=== PATIENT | female | born 1950 | race Caucasian/White ===

== ENCOUNTER 2019-05-23 12:35 | Emergency (ER) | payer OTHER, MEDICARE ==
[2019-05-23] MEDS ORDERED: IBUPROFEN 200 MG TAB PO ONE (13:03)
[2019-05-23] MEDS ORDERED: IBUPROFEN 400 MG TAB ONE (13:03)
--- NOTE | 2019-05-23 14:18 | EDPHYS ---
Physician Documentation [facility] Name: Myia Flores Age: 69 yrs Sex: Female : 1950 Arrival Date: 05/23/2019 Time: 12:38 Bed 24 Private MD: ED Physician Mahin Putnam HPI: 05/23 12:59 This 69 yrs old Female presents to ER via Ambulatory with complaints of Hip la1 Pain. 12:59 The patient or guardian reports pain. that occurred outdoors, sustained from a fall, la1 There is no obvious deformity, The patient is able to self ambulate. The patient is able to bear their full body weight. The patient's discomfort radiates to the left knee. The complaints affect the left hip. Onset: The symptoms/episode began/occurred 3 day(s) ago. Modifying factors: The symptoms are alleviated by nothing, the symptoms are aggravated by nothing. Associated signs and symptoms: Loss of consciousness: the patient experienced no loss of consciousness. Severity of symptoms: At their worst the symptoms were mild. Pt was walking three dogs and they ran to fight another dog knocking her to the ground, pain in left hip area since fall. Historical: - Allergies: 12:44 PENICILLINS; ss - PMHx: 12:44 Narcolepsy; ss - PSHx: 12:44 None; ss - Immunization history:: Adult Immunizations up to date. - Social history:: Smoking status: Patient/guardian denies using tobacco. - Ebola Screening: : Patient denies exposure to infectious person Patient denies travel to an Ebola-affected area in the 21 days before illness onset. ROS: 13:00 Constitutional: Negative for fever, chills, and weight loss, Eyes: Negative for injury, la1 pain, redness, and discharge, ENT: Negative for injury, pain, and discharge, Neck: Negative for injury, pain, and swelling, Cardiovascular: Negative for chest pain, palpitations, and edema, Respiratory: Negative for shortness of breath, cough, wheezing, and pleuritic chest pain, Abdomen/GI: Negative for abdominal pain, nausea, vomiting, diarrhea, and constipation, Back: Negative for injury and pain, MS/Extremity: + for left hip pain Neuro: Negative for headache, weakness, numbness, tingling, and seizure. Exam: 13:01 Constitutional: This is a well developed, well nourished patient who is awake, alert, la1 and in no acute distress. Head/Face: Normocephalic, atraumatic. Eyes: Pupils equal round and reactive to light, extra-ocular motions intact.Periorbital areas with no swelling, redness, or edema. ENT: Mucous membranes moist. Neck: . No Meningismus. Chest/axilla: Normal chest wall appearance and motion. Nontender with no deformity. No lesions are appreciated. Cardiovascular: Regular rate and rhythm with a normal S1 and S2. No gallops, murmurs, or rubs. Normal PMI, no JVD. No pulse deficits. Respiratory: Lungs have equal breath sounds bilaterally, clear to auscultation No rales, rhonchi or wheezes noted. No increased work of breathing, no retractions or nasal flaring. MS/ Extremity: Pulses equal, no cyanosis. Neurovascular intact. Full, normal range of motion. Vital Signs: 12:44 BP 132 / 63; Pulse 72; Resp 16; Temp 98.1(TE); Pulse Ox 99% on R/A; Weight 63.5 kg; ss Height 5 ft. 1 in. (154.94 cm); Pain 5/10; 13:26 BP 120 / 61; Pulse 64; Resp 17 S; Pulse Ox 100% on R/A; ca1 12:44 Body Mass Index 26.45 (63.50 kg, 154.94 cm) ss MDM: 12:46 Patient medically screened. la1 14:15 Data reviewed: vital signs, nurses notes, radiologic studies, and as a result, I will la1 discharge patient. Data interpreted: Pulse oximetry: on room air is 100 %. Interpretation: normal. Test interpretation: by ED physician or midlevel provider: plain radiologic studies. Counseling: I had a detailed discussion with the patient and/or guardian regarding: radiology results, the need for outpatient follow up, a family practitioner, a orthopedic surgeon, to return to the emergency department if symptoms worsen or persist or if there are any questions or concerns that arise at home. Special discussion: Based on the history and exam findings, there is no indication for further emergent testing or inpatient evaluation. I discussed with the patient/guardian the need to see the orthopedic surgeon for further evaluation of the symptoms. 05/23 12:58 Order name: Hip Left 2 View XRAY la1 Administered Medications: 13:05 Drug: Motrin 600 mg Route: PO; em 14:30 Follow up: Response: No adverse reaction; Pain is unchanged, physician notified em 14:30 Drug: [place] (7.5 mg-325 mg) 1 tabs Route: PO; em 14:37 Follow up: Response: Medication administered at discharge. em Disposition: 05/23/19 14:16 Discharged to Home. Impression: Pain in left hip. - Condition is Stable. - Discharge Instructions: Joint Pain, Musculoskeletal Pain, Hip Pain. - Prescriptions for Tylenol- Codeine #3 300-30 mg Oral Tablet - take 2 tablets by ORAL route every 6 hours As needed; 20 tablet. - Medication Reconciliation Form, Thank You Letter, Prescription Opioid Use form. - Follow up: Private Physician; When: 2 - 3 days; Reason: Recheck today's complaints, Re-evaluation by your physician. - Problem is new. - Symptoms have improved. Addendum: 05/26/2019 06:40 Co-signature as Attending Physician, Mahin Putnam MD I agree with the assessment and k dr plan of care. Signatures: Dispatcher [employer] EDMahin Dodson MD MD [facility] Jerod Burroughs, MECHANICAL MAINTENANCE TECHNICIAN MECHANICAL MAINTENANCE TECHNICIAN em Jagruti Cgae RN RN ss Gabriel Franklin, POULTRY HUSBANDMAN-C POULTRY HUSBANDMAN-Cla1 Corrections: (The following items were deleted from the chart) 05/23 14:39 14:16 05/23/2019 14:16 Discharged to Home. Impression: Pain in left hip. Condition is em Stable. Forms are Medication Reconciliation Form, Thank You Letter, Antibiotic Education, Prescription Opioid Use. Follow up: Private Physician; When: 2 - 3 days; Reason: Recheck today's complaints, Re-evaluation by your physician. Problem is new. Symptoms have improved. la1
--- NOTE | 2019-05-23 14:18 | ER ---
Nurse's Notes [facility] Name: Miya Flores Age: 69 yrs Sex: Female : 1950 Arrival Date: 05/23/2019 Time: 12:38 Bed 24 Private MD: Diagnosis: Pain in left hip Presentation: 05/23 12:42 Presenting complaint: Patient states: L hip pain after falling 4 days ago while walking ss dogs. Transition of care: patient was not received from another setting of care. Onset of symptoms was May 19, 2019. Risk Assessment: Do you want to hurt yourself or someone else? Patient reports no desire to harm self or others. Initial Sepsis Screen: Does the patient meet any 2 criteria? No. Patient's initial sepsis screen is negative. Does the patient have a suspected source of infection? No. Patient's initial sepsis screen is negative. Care prior to arrival: None. 12:42 Method Of Arrival: Ambulatory ss 12:42 Acuity: JOSSELIN 4 ss Historical: - Allergies: 12:44 PENICILLINS; ss - PMHx: 12:44 Narcolepsy; ss - PSHx: 12:44 None; ss - Immunization history:: Adult Immunizations up to date. - Social history:: Smoking status: Patient/guardian denies using tobacco. - Ebola Screening: : Patient denies exposure to infectious person Patient denies travel to an Ebola-affected area in the 21 days before illness onset. Screenin:53 Abuse screen: Denies threats or abuse. Nutritional screening: No deficits noted. em Tuberculosis screening: No symptoms or risk factors identified. Fall Risk None identified. Assessment: 13:00 General: Appears in no apparent distress. comfortable, Behavior is calm, cooperative. em Pain: Complains of pain in coccyx Pain radiates to left leg Pain currently is 5 out of 10 on a pain scale. Neuro: Level of Consciousness is awake, alert, obeys commands, Oriented to person, place, time, situation, Appropriate for age. Cardiovascular: Capillary refill < 3 seconds Patient's skin is warm and dry. Respiratory: Airway is patent Respiratory effort is even, unlabored, Respiratory pattern is regular, symmetrical. Derm: Skin is intact, is healthy with good turgor, Skin is pink, warm \T\ dry. Musculoskeletal: Capillary refill < 3 seconds, Range of motion: intact in all extremities. 13:29 Reassessment: X ray at bedside. ca1 14:38 Reassessment: Patient appears in no apparent distress at this time. Patient and/or em family updated on plan of care and expected duration. Pain level reassessed. Patient is alert, oriented x 3, equal unlabored respirations, skin warm/dry/pink. Vital Signs: 12:44 BP 132 / 63; Pulse 72; Resp 16; Temp 98.1(TE); Pulse Ox 99% on R/A; Weight 63.5 kg; ss Height 5 ft. 1 in. (154.94 cm); Pain 5/10; 13:26 BP 120 / 61; Pulse 64; Resp 17 S; Pulse Ox 100% on R/A; ca1 12:44 Body Mass Index 26.45 (63.50 kg, 154.94 cm) ss ED Course: 12:38 Patient arrived in ED. mr 12:43 Triage completed. ss 12:44 Arm band placed on left wrist. ss 12:46 Gabriel Franklin FNP-C [facility]. la1 12:46 Mahin Putnam MD is Attending Physician. la1 12:52 Jerod Burroughs LVN is Primary Nurse. em 12:53 Patient has correct armband on for positive identification. Bed in low position. Call em light in reach. Adult w/ patient. 13:54 Hip Left 2 View XRAY In Process Unspecified. EDMS 14:38 No provider procedures requiring assistance completed. Patient did not have IV access em during this emergency room visit. Administered Medications: 13:05 Drug: Motrin 600 mg Route: PO; em 14:30 Follow up: Response: No adverse reaction; Pain is unchanged, physician notified em 14:30 Drug: [place] (7.5 mg-325 mg) 1 tabs Route: PO; em 14:37 Follow up: Response: Medication administered at discharge. em Outcome: 14:16 Discharge ordered by . la1 14:38 Discharged to home ambulatory, with family. em 14:38 Condition: good 14:38 Discharge instructions given to patient, family, Instructed on discharge instructions, follow up and referral plans. medication usage, Demonstrated understanding of instructions, follow-up care, medications, Prescriptions given X 1. 14:39 Patient left the ED. em Signatures: Dispatcher [employer] EDWI Yelitza Fleming mr Manjeet, Jerod, DIVISION HEAD DIVISION HEAD em Jagruti Cage, RN RN ss Gabriel Franklin, ROBOTICS APPLICATION ENGINEER-C ROBOTICS APPLICATION ENGINEER-Cla1 Yarelis Ledesma RN RN ca1
[2019-05-23] MEDS ORDERED: HYDROCODONE/APAP 7.5/325 MG TAB ONE (14:26)
--- NOTE | 2019-05-23 14:27 | RAD REPORT ---
EXAM DESCRIPTION: RAD - Hip Left 2 View - 05/23/2019 1:53 pm CLINICAL HISTORY: Left hip pain following fall COMPARISON: None. FINDINGS: AP and frogleg views of the left hip were obtained. There is no fracture or dislocation. N o AVN or focal femoral head abnormality. Hip joint degenerative changes are mild. Mild SI joint degen erative changes are present. No soft tissue abnormality. IMPRESSION: Negative left hip examination for acute or significant findings.
[2019-05-23 14:53] VITALS: TEMP 98.1
[2019-05-23 14:54] VITALS: BP 120/61; O2SAT 100
== END 2019-05-23 14:39 | disposition home or self-care (01) ==
LOC: ER 12:35
DX: M25.552 Pain in left hip (principal); Z88.0 Allergy status to penicillin
CPT/HCPCS: 99283